=== PATIENT | male | born 1985 | race Caucasian/White ===

== ENCOUNTER 2017-12-30 21:34 | Emergency (ER) | payer MEDICAID ==
[~2017-12-30] VITALS: Ht 175.3 cm; Wt 88.8 kg
[2017-12-30] MEDS ORDERED: CYCLOBENZAPRINE 10 MG TABLET ONE (21:59)
[2017-12-30] MEDS ORDERED: ACETAMINOPHEN 325 MG TABLET PO ONE (22:00)
[2017-12-30] MEDS ORDERED: CYCLOBENZAPRINE 10 MG TABLET PO ONE (22:00)
[2017-12-30] MEDS ORDERED: KETOROLAC 30 MG/1 ML IM ONE (22:00)
[2017-12-30] MEDS ORDERED: ACETAMINOPHEN 325 MG TABLET ONE (22:00)
[2017-12-30] MEDS ORDERED: KETOROLAC 30 MG/1 ML ONE (22:00)
[2017-12-30 22:17] VITALS: BP 124/85
== END 2017-12-30 22:19 | disposition home or self-care (01) ==
LOC: ED 22:01
DX: S39.012A Strain of muscle, fascia and tendon of lower back, initial encounter (principal); X58.XXXA Exposure to other specified factors, initial encounter; Y93.89 Activity, other specified; Y92.89 Other specified places as the place of occurrence of the external cause; Y99.8 Other external cause status
CPT/HCPCS: 96372; 99283; J1885